=== PATIENT | female | born 1965 | race Caucasian/White ===

== ENCOUNTER 2021-04-30 00:14 | Emergency (ER) | payer SELFPAY ==
--- NOTE | 2021-04-30 00:22 | NUR ---
Patient was called to be triaged but was not present in the waiting room or outside of ER.
--- NOTE | 2021-04-30 00:38 | NUR ---
patient was called to be triaged but was not present in the waiting room or outside of ER.
--- NOTE | 2021-04-30 00:45 | NUR ---
Patient was called to be triaged but was not present in the waiting room. PATIENT WAS NOT TRIAGED OR SEEN BY [facility].
== END 2021-04-30 01:10 | disposition left against medical advice (07) ==
LOC: ER 00:26
DX: Z53.21 Procedure and treatment not carried out due to patient leaving prior to being seen by health care provider (principal)